=== PATIENT | male | born 2000 | race Caucasian/White ===

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

== ENCOUNTER 2018-09-05 19:01 | Emergency (ER) | payer OTHER ==
[~2018-09-05] VITALS: Ht 172.7 cm; Wt 115.0 kg
[~2018-09-05 19:01] MED LIST: ACET325T45 PO; ACET500C5 PO; CEPH-443 PO; HYDR-3498 PO
[2018-09-05 19:13] VITALS: Ht 172.7 cm; Wt 115.0 kg
--- NOTE | 2018-09-05 21:42 | ERD ---
ER Documentation Chief Complaint Chief Complaint LEFT THUMB DOG BITE ON NAIL BED, EMBEDDER REPORTS DOG HAS VACCINATIONS HPI 18-year-old male, previously healthy, right-handed, presents to the emergency department, complaining of left thumb dog bite caused by an unprovoked attack. The dog is an indoor pet that belongs to his neighbor and has all his vaccines up-to-date. ROS All systems reviewed and are negative except as per history of present illness. Medications Home Meds Active Scripts Hydrocodone/Acetaminophen ([place]coe 5-325 Tablet) 1 Each Tablet, 1 TAB PO Q6H PRN for PAIN, #7 TAB Prov:JEREMY HANSON MD 09/05/18 Amoxicillin/Potassium Clav (Amox-Clav 875-125 mg Tablet) 875-125 mg Tab, 1 TAB PO BID for 7 Days, #14 TAB Prov:JEREMY AHNSON MD 09/05/18 Cephalexin* (Keflex*) 500 Mg Capsule, 500 MG PO QID for 7 Days, CAP Prov:SANDRITA OLIVIER PA-C 07/19/17 Acetaminophen* (Tylophen*) 500 Mg Capsule, 1 CAP PO Q6H PRN for PAIN AND OR ELEVATED TEMP, #20 CAP Prov:SANDRITA OLIVIER PA-C 07/19/17 Acetaminophen* (Acetaminophen*) 325 Mg Tablet, 325 MG PO Q4H PRN for PAIN AND OR ELEVATED TEMP, #30 TAB Prov:CHANDLER CLAUDIO DO 10/25/15 Hydrocodone Bit-Acetaminophen* (Roscoe*) 5-325 Mg Tab, 1 TAB PO Q6 PRN for PAIN, #14 TAB Prov:JHONATAN HERZOG PA-C 01/13/15 Allergies Allergies: Coded Allergies: ibuprofen (Verified Allergy, Severe, 10/25/15) PMhx/Soc Medical and Surgical Hx: pt denies Medical Hx, pt denies Surgical Hx History of Surgery: No Anesthesia Reaction: No Hx Neurological Disorder: No Hx Respiratory Disorders: No Hx Cardiac Disorders: No Hx Psychiatric Problems: No Hx Miscellaneous Medical Probl: No Hx Alcohol Use: No Hx Substance Use: No Hx Tobacco Use: No Smoking Status: Never smoker FmHx Family History: No diabetes, No coronary disease Physical Exam Vitals Vital Signs Date Temp Pulse Resp B/P (MAP) Pulse Ox O2 O2 Flow FiO2 Time Delivery Rate 09/05/18 98.8 59 18 135/79 99 22:07 (97) 09/05/18 98.9 96 16 143/86 95 19:13 (105) Physical Exam Const: No acute distress Head: Atraumatic Eyes: Normal Conjunctiva ENT: Normal External Ears, Nose and Mouth. Neck: Full range of motion. No meningismus. Resp: Clear to auscultation bilaterally Cardio: Regular rate and rhythm, no murmurs Abd: Soft, non tender, non distended. Normal bowel sounds Skin: No petechiae or rashes Back: No midline or flank tenderness Ext: Left thumb: Puncture wound on the distal phalanx, no active bleeding, distal neurovascular exam intact. Neur: Awake and alert Psych: Normal Mood and Affect Procedures/MDM Vital signs stable, Low suspicion for foreign body, tendon laceration, nerve damage, cellulitis, erysipelas, abscess. Physical examination and clinical presentation consistent most likely with dog bite of the left thumb. The patient is stable to be treated outpatient and will be discharged home with a Rx for antibiotics and pain medications, some side effects of prescribed medications (headache, rash, nausea, vomiting, diarrhea, drowsiness, habituation, bleeding, hypertension, interactions with other medications) were reviewed. Instructions explained and given directly by me to the patient and relatives with acknowledgment and demonstrated understanding. Disclaimer: Inadvertent spelling and grammatical errors are likely due to EHR/dictation software use and do not reflect on the overall quality of patient care. Also, please note that the electronic time recorded on this note does not necessarily reflect the actual time of the patient encounter. Departure Diagnosis: Primary Impression: Dog bite of left hand Condition: Stable Additional Instructions: Thank you very much for allowing us to participate in your care. Your health and safety is our top priority at [facility]. The evaluation in the emergency department has been done to rule out an acute emergency. Chronic, [id number] conditions may have not been evaluated; therefore, you need to follow up with a primary care provider in the next 48h. If symptoms persist, worsen or new symptoms develop, then patient should return to the ED immediately. Call your primary care doctor TOMORROW for an appointment during the next 2-4 days and bring all the information provided. Have prescriptions filled and follow precisely the directions on the label. If the symptoms get worse and your provider is unavailable, return to the Emergency Department immediately. JEREMY HANSON MD Sep 05, 2018 21:42
[2018-09-05] MEDS ORDERED: AMOX1TAB10 PO (21:45)
[2018-09-05] MEDS ORDERED: HYDR-4011 PO (21:45)
[2018-09-05 22:07] VITALS: BP 135/79; PULSE 59; RESP 18
== END 2018-09-05 22:08 | disposition home or self-care (01) ==
LOC: FTE 19:01
DX: S61.152A Open bite of left thumb with damage to nail, initial encounter (principal); W54.0XXA Bitten by dog, initial encounter; Y92.9 Unspecified place or not applicable
CPT/HCPCS: 99283